=== PATIENT | male | born 1960 | race Caucasian/White ===

== ENCOUNTER 2018-07-12 10:28 | Day surgery (SDC) | payer OTHER ==
[~2018-07-12] VITALS: Ht 157.5 cm; Wt 72.0 kg
[2018-07-12 10:59] VITALS: Ht 157.5 cm; Wt 72.0 kg
[2018-07-12 11:12] VITALS: BP 125/78; PULSE 87; RESP 18
--- NOTE | 2018-07-12 11:12 | PREAC ---
Date/Time of Note Date/Time of Note DATE: 07/12/18 TIME: 11:09 Anesthesia Eval and Record Evaluation Time Pre-Procedure Interview DATE: 07/12/18 TIME: 11:09 Age 57 Sex male NPO: 8 hrs Preoperative diagnosis abdominal pain, positive occult blood Planned procedure EGD, colonoscopy Past Medical History Past Medical History: Includes GI: GERD Heme: Anemia Surgery & Anesthesia Issues No known issue Meds Anticoagulation: No Beta Liv within 24 hr: No Reason Beta Liv not given: Pt. not on B-Liv Reported Medications [None] No Conflict Check 07/12/18 Meds reviewed: Yes Allergies Coded Allergies: No Known Allergy (Unverified , 07/12/18) Allergies Reviewed: Yes Labs/Studies Labs Reviewed: Reviewed by anesthesiologist test: N/A Studies: ECG Pre-procedure Exam Last vitals BP:118/67, P:78, Spo2:100%, T:98,8 Airway: Adequate mouth opening, Adequate thyromental dist Mallampati: Mallampati II Teeth: Normal Lung: Normal Heart: Normal ASA Physical Status ASA physical status: 2 Emergency: None Planned Anesthetic General/MAC: MAC Planned Pain Management Parenteral pain med Pre-operative Attestations Prior to commencing anesthesia and surgery, the patient was re-evaluated, there was verification of: *The patient's identity *The results of appropriate recent lab work and preoperative vital signs *The above evaluation not changing prior to induction *Anesthetic plan, risk benefits, alternative and complications discussed with patient/family; questions answered; patient/family understands, accepts and wishes to proceed. YOUSIF MORILLO MD July 12, 2018 11:12
[2018-07-12] MEDS ORDERED: LIDOCAINE 2% (SDV) 5 ML INJ ONE (11:13)
[2018-07-12] MEDS ORDERED: PROPOFOL 60 ML ONE (11:13)
--- NOTE | 2018-07-12 11:59 | PAC ---
Date/Time of Note Date/Time of Note DATE: 07/12/18 TIME: 11:58 Post-Anesthesia Notes Post-Anesthesia Note Last documented vital signs Vital Signs Date Temp Pulse Resp B/P (MAP) Pulse Ox O2 O2 Flow FiO2 Time Delivery Rate 07/12/18 98.0 87 18 125/78 94 Room Air 11:12 (94) Activity: WNL Respiratory function: WNL Cardiovascular function: WNL Mental status: Baseline Pain reasonably controlled: Yes Hydration appropriate: Yes Nausea/Vomiting absent: Yes Comments BP:112/67, P:78, Spo2:100%, T:98,9 YOUSIF MORILLO MD July 12, 2018 11:59
[2018-07-12 12:27] VITALS: BP 128/83; PULSE 86; RESP 20
== END 2018-07-12 14:21 | disposition home or self-care (01) ==
LOC: GIL 10:28
PROVIDERS: ATTEND Internal Medicine Gastroenterology
DX: K29.50 Unspecified chronic gastritis without bleeding (principal); B96.89 Other specified bacterial agents as the cause of diseases classified elsewhere; K64.8 Other hemorrhoids; K21.9 Gastro-esophageal reflux disease without esophagitis; K44.9 Diaphragmatic hernia without obstruction or gangrene; R19.5 Other fecal abnormalities
CPT/HCPCS: 43239; 45378; Z7610; 88305; 88312